=== PATIENT | male | born 1985 | race African-American/Black ===

== ENCOUNTER 2021-03-04 15:10 | Emergency (ER) | payer BC ==
[~2021-03-04] VITALS: Ht 175.3 cm; Wt 74.0 kg
[2021-03-04 19:09] VITALS: BP 140/94
[2021-03-04] MEDS ORDERED: DOXY1CAP62 PO (21:04)
[2021-03-04] MEDS ORDERED: cefTRIAXone 500MG VIAL (J0696 PER 250MG) IM ONE (21:05)
[2021-03-04] MEDS ORDERED: DOXYCYCLINE HYCLATE 100MG TABLET PO ONE (21:05)
[2021-03-04] MEDS ORDERED: LIDOCAINE 1% SDV 5ML VIAL DILUENT ONE (21:05)
[2021-03-04 22:31] LABS: GC DNA AMPLIFICATION NEGATIVE (NEGATIVE)
== END 2021-03-04 21:33 | disposition home or self-care (01) ==
LOC: M ED 15:10
DX: R35.0 Frequency of micturition (principal); Z20.2 Contact with and (suspected) exposure to infections with a predominantly sexual mode of transmission
CPT/HCPCS: 81001; 87661; 96372; 99283; J0696

== ENCOUNTER 2021-04-19 16:54 | Emergency (ER) | payer BC, OTHER ==
[~2021-04-19] VITALS: Ht 175.3 cm; Wt 72.7 kg
[2021-04-19 16:54] VITALS: BP 115/70
[~2021-04-19 16:54] MED LIST: DOXY1CAP62 PO
[2021-04-19] MEDS ORDERED: CYCL-707 PO (18:30)
[2021-04-19] MEDS ORDERED: IBUP80TA PO (18:30)
== END 2021-04-19 18:55 | disposition home or self-care (01) ==
LOC: M ED 16:54
DX: G89.29 Other chronic pain (principal); M54.50 Low back pain, unspecified